=== PATIENT | male | born 1940 | race Caucasian/White ===

== ENCOUNTER → 2023-12-01 08:16 | Outpatient (REF) | payer OTHER, SELFPAY ==
[2023-12-01 10:28] LABS: ALT (SGPT) 29 U/L (0-50); AST (SGOT) 27 U/L (17-59); Albumin 4.1 g/dl (3.5-5.0); Alkaline Phosphatase 68 U/L (38-126); Blood Urea Nitrogen 31 mg/dl (9-20); Calcium 10.6 mg/dl (8.4-10.2); Carbon Dioxide 19 mmol/L (22-30); Chloride 113 mmol/L (98-107); Glucose 132 mg/dl (70-99); HDL Cholesterol 62 mg/dl; LDL Cholesterol, Calculated 53 mg/dl; Potassium 4.7 mmol/L (3.5-5.1); Sodium 141 mmol/L (135-145); Total Bilirubin 0.6 mg/dl (0.2-1.3); Total Cholesterol 125 mg/dl (50-199); Total Protein 6.6 g/dl (6.3-8.2); Triglyceride 54 mg/dl (10-149); Very Low Density Lipoprotein 10 mg/dl (0-30)
[2023-12-01 10:57] LABS: PSA, Total - Screen 1.03 ng/ml (0.0-4.0)
[2023-12-01 12:11] LABS: Glycohemoglobin (HgbA1c) 6.6 % (4.0-5.6)
== END ==
LOC: REG 08:16
PROVIDERS: ATTENDING PHYSICIAN Family Medicine
DX: E11.22 Type 2 diabetes mellitus with diabetic chronic kidney disease (principal); Z12.5 Encounter for screening for malignant neoplasm of prostate; E78.2 Mixed hyperlipidemia
CPT/HCPCS: 36415; 80053; 80061; 83036; G0103

== ENCOUNTER → 2024-01-23 08:02 | Outpatient (REF) | payer OTHER, SELFPAY | LOC: RAD 08:02 | PROVIDERS: ATTENDING PHYSICIAN Specialist; FAMILY PHYSICIAN Family Medicine | DX: N21.0 Calculus in bladder (principal) | CPT/HCPCS: 76770 ==

== ENCOUNTER → 2024-12-17 07:51 | Outpatient (REF) | payer OTHER, SELFPAY ==
[2024-12-17 09:53] LABS: Microalbumin, Random Urine 9.9 mg/dl (0.6-1.7); Microalbumin/creatinine Ratio 122.4 mg/g
[2024-12-17 10:49] LABS: Blood Urea Nitrogen 49 mg/dl (9-20); Calcium 10.3 mg/dl (8.4-10.2); Carbon Dioxide 19 mmol/L (22-30); Chloride 116 mmol/L (98-107); Glucose 154 mg/dl (70-99); Potassium 4.9 mmol/L (3.5-5.1); Sodium 143 mmol/L (135-145); eGFR 26.12
[2024-12-17 11:21] LABS: TSH 0.71 uIU/ml (0.47-4.68)
== END ==
LOC: REG 07:51
PROVIDERS: ATTENDING PHYSICIAN Family Medicine
DX: E11.22 Type 2 diabetes mellitus with diabetic chronic kidney disease (principal); R25.1 Tremor, unspecified; N18.31 Chronic kidney disease, stage 3a
CPT/HCPCS: 36415; 80048; 82043; 82570; 84443

== ENCOUNTER → 2025-01-28 07:56 | Outpatient (REF) | payer OTHER, SELFPAY ==
[2025-01-28 10:39] LABS: Blood Urea Nitrogen 45 mg/dl (9-20); Calcium 10.2 mg/dl (8.4-10.2); Carbon Dioxide 22 mmol/L (22-30); Chloride 112 mmol/L (98-107); Glucose 145 mg/dl (70-99); Potassium 5.0 mmol/L (3.5-5.1); Sodium 140 mmol/L (135-145); eGFR 32.51
== END ==
LOC: HWRAD 07:56
PROVIDERS: ATTENDING PHYSICIAN Specialist; FAMILY PHYSICIAN Family Medicine
DX: N21.0 Calculus in bladder (principal); N20.0 Calculus of kidney; N18.31 Chronic kidney disease, stage 3a
CPT/HCPCS: 36415; 76770; 80048

== ENCOUNTER → 2025-02-02 10:20 | Outpatient (REF) | payer OTHER, SELFPAY ==
[2025-02-02 12:25] LABS: PSA, Total - Screen 1.15 ng/ml (0.0-4.0)
== END ==
LOC: REG 10:20
PROVIDERS: ATTENDING PHYSICIAN Specialist; FAMILY PHYSICIAN Family Medicine
DX: Z12.5 Encounter for screening for malignant neoplasm of prostate (principal)
CPT/HCPCS: 36415; G0103